=== PATIENT | female | born 1950 | race Caucasian/White ===

== ENCOUNTER 2018-06-25 10:44 | Emergency (ER) | payer MEDICARE, BC ==
[2018-06-25] MEDS ORDERED: Cyclobenzaprine 10 MG Tab PO ONE (11:24)
[2018-06-25] MEDS ORDERED: Ketorolac 30 MG/ML SDV IM ONE (11:24)
--- NOTE | 2018-06-25 11:25 | EDM.PDOC ---
ED HPI GENERAL MEDICAL PROBLEM - General Chief Complaint: Neck Problem Stated Complaint: Neck Pain Time Seen by Provider: 06/25/18 10:45 Source of Information: Reports: Patient History Limitations: Reports: No Limitations - History of Present Illness INITIAL COMMENTS - FREE TEXT/NARRATIVE: History of present illness: []Patient has a history of pancreatic cancer and 4 days ago sat in oncology in a reclining chair for chemotherapy. She drove home that day and when she turned her neck she noticed pain on the right lateral neck. She's had muscle stiffness and continuing pain with head movement since. Review of systems: As per history of present illness and below otherwise all systems reviewed and negative. Past medical history: As per history of present illness and as reviewed below otherwise noncontributory. Surgical history: As per history of present illness and as reviewed below otherwise noncontributory. Social history: No reported history of drug or alcohol abuse. Family history: As per history of present illness and as reviewed below otherwise noncontributory. Physical exam: General: Well developed, well nourished in NAD HEENT: Atraumatic, normocephalic, pupils reactive, negative for conjunctival pallor or scleral icterus, mucous membranes moist, throat clear, neck supple, nontender, trachea midline. Lungs: Clear to auscultation, breath sounds equal bilaterally, chest nontender. Heart: S1S2, regular, negative for clicks, rubs, or JVD. Abdomen: NABS, Soft, nondistended, nontender. Negative for masses or hepatosplenomegaly. Negative for costovertebral tenderness. Pelvis: Stable nontender. Genitourinary: Deferred. Rectal: Deferred. Extremities: Atraumatic, negative for cords or calf pain. Neurovascular unremarkable. Neuro: Awake, alert, oriented. Cranial nerves II through XII unremarkable. Cerebellum unremarkable. Motor and sensory unremarkable throughout. Exam nonfocal. Skin:warm and dry Diagnostics: None Therapeutics: Toradol, Flexeril ED Course: Stable Impression: Musculoskeletal spasm Prescriptions: Diclofenac, take your oxycodone and Flexeril at home Plan: Take meds as directed, follow up with your primary care physician, return to ER if symptoms worsen or change. 2 neck Definitive disposition and diagnosis as appropriate pending reevaluation and review of above. Neck Pain Score (Numeric/FACES): 6 - Related Data Allergies Allergy/AdvReac Type Severity Reaction Status Date / Time codeine Allergy Headache Verified 06/25/18 11:05 Home Meds: Home Meds Aspirin [Halfprin] 81 mg PO DAILY 06/25/18 [History] Diclofenac Sodium [Voltaren] 75 mg PO BIDMEALS PRN #20 tab.cr 06/25/18 [Rx] Gabapentin [Neurontin] 1,500 mg PO DAILY 06/25/18 [History] Levothyroxine mcg PO DAILY 06/25/18 [History] Sertraline [Zoloft] mg PO DAILY 06/25/18 [History] metFORMIN [Glucophage XR] 1,000 mg PO BID 06/25/18 [History] Past Medical History Endocrine/Metabolic History: Reports: Diabetes, Type II - Infectious Disease History Infectious Disease History: Reports: Chicken Pox, Measles, Mumps - Past Surgical History HEENT Surgical History: Reports: Adenoidectomy, Tonsillectomy, Other (See Below) Other HEENT Surgeries/Procedures: left ear surgeries x5 Other Cardiovascular Surgeries/Procedures: States had bypass surgery 1 year ago. GI Surgical History: Reports: Cholecystectomy Female Surgical History: Reports: Hysterectomy Social & Family History - Tobacco Use Smoking Status *Q: Former Smoker Used Tobacco, but Quit: Yes Month/Year Tobacco Last Used: 20 - Caffeine Use Caffeine Use: Reports: Soda - Recreational Drug Use Recreational Drug Use: No ED ROS GENERAL - Review of Systems Review Of Systems: ROS reveals no pertinent complaints other than HPI. ED EXAM, UPPER BACK/NECK PAIN - Physical Exam Exam: See Below (See history of present illness) Course - Vital Signs Last Recorded V/S: Last Vital Signs Temp 97.2 F 06/25/18 11:09 Pulse 116 H 06/25/18 11:09 Resp 16 06/25/18 11:09 BP 146/82 H 06/25/18 11:09 Pulse Ox 95 06/25/18 11:09 - Orders/Labs/Meds Meds: Medications Discontinued Medications Generic Name Dose Route Start Last Admin Trade Name Freq PRN Reason Stop Dose Admin Cyclobenzaprine HCl 10 mg 06/25/18 11:24 06/25/18 11:33 Flexeril PO 06/25/18 11:25 10 mg ONETIME ONE Administration Ketorolac Tromethamine 30 mg 06/25/18 11:24 06/25/18 11:33 Toradol IM 06/25/18 11:25 30 mg ONETIME ONE Administration Departure - Departure Time of Disposition: 12:25 Disposition: Home, Self-Care 01 Condition: Good Clinical Impression: Muscle spasm - Discharge Information *PRESCRIPTION DRUG MONITORING PROGRAM REVIEWED*: No *COPY OF PRESCRIPTION DRUG MONITORING REPORT IN PATIENT WENDY: No Prescriptions: Diclofenac Sodium [Voltaren] 75 mg PO BIDMEALS PRN #20 tab.cr PRN Reason: Pain Referrals: PCP,None [Primary Care Provider] - Forms: ED Department Discharge Additional Instructions: The following information is given to patients seen in the emergency department who are being discharged to home. This information is to outline your options for follow-up care. We provide all patients seen in our emergency department with a follow-up referral. The need for follow-up, as well as the timing and circumstances, are variable depending upon the specifics of your emergency department visit. If you don't have a primary care physician on staff, we will provide you with a referral. We always advise you to contact your personal physician following an emergency department visit to inform them of the circumstance of the visit and for follow-up with them and/or the need for any referrals to a consulting specialist. The emergency department will also refer you to a specialist when appropriate. This referral assures that you have the opportunity for follow-up care with a specialist. All of these measure are taken in an effort to provide you with optimal care, which includes your follow-up. Under all circumstances we always encourage you to contact your private physician who remains a resource for coordinating your care. When calling for follow-up care, please make the office aware that this follow-up is from your recent emergency room visit. If for any reason you are refused follow-up, please contact the [facility] Emergency Department at and asked to speak to the emergency department charge nurse. [facility] [address] [place] [id number]
== END 2018-06-25 12:33 | disposition home or self-care (01) ==
LOC: MW.ED 10:44
DX: M62.838 Other muscle spasm (principal); E11.9 Type 2 diabetes mellitus without complications; Z87.891 Personal history of nicotine dependence; Z88.5 Allergy status to narcotic agent; Z79.82 Long term (current) use of aspirin; Z79.899 Other long term (current) drug therapy; Z79.84 Long term (current) use of oral hypoglycemic drugs
CPT/HCPCS: 96372; 99283; A9270; J1885

== ENCOUNTER 2019-05-09 10:22 | Emergency (ER) | payer MEDICARE ==
[2019-05-09] MEDS ORDERED: Sodium Chloride 0.9% 10 ML Syringe FLUSH PRN (10:39)
[2019-05-09] MEDS ORDERED: Sodium Chloride 0.9% 2.5 ML Syringe FLUSH PRN (10:39)
--- NOTE | 2019-05-09 11:56 | CR ---
Chest: 2 views of the chest were obtained. Comparison: Prior chest CT study of 03/26/19. Blunting of the lateral left costophrenic angle is seen most likely representing minimal pleural effusion or pleural thickening. Left basilar chest tube appears to be present. Right-sided infusion port is seen. Surgical clips are seen within the left axillary region. Left upper and right lung are clear. Heart is enlarged. Atherosclerotic change and tortuosity is seen of the thoracic aorta is. Impression: 1. Blunting of the lateral left costophrenic angle believed to represent small pleural effusion or pleural thickening. Left basilar chest tube appears to be present. 2. Cardiomegaly. Other findings as noted above. Diagnostic code #3 This report was dictated in [place] Standard Time
[2019-05-09 12:14] LABS: LIPASE 86 U/L (73-393)
[2019-05-09] MEDS ORDERED: Iopamidol 755 MG/ML 500 ML Multipack Bottle IVPUSH STA (13:46)
--- NOTE | 2019-05-09 14:26 | CT ---
CT chest Technique: Multiple axial sections were obtained from above the lung apices inferiorly through the lung bases. Intravenous contrast was utilized. Study has been performed as a pulmonary angiogram protocol. Findings: Pulmonary arteries are well opacified. No filling defects are seen to indicate pulmonary embolism. Extensive coronary artery calcification is seen. Diffuse body wall edema is identified. Anterior abdominal wall hernia containing a loop of colon is seen to the left of midline. Bilateral pleural effusions are noted. Left chest tube is seen. Lungs show slight atelectasis on the left side. Lungs otherwise are clear. Atherosclerotic calcification is noted within the aorta without aneurysm. Bone window settings were reviewed which show no acute osseous finding. Impression: 1. No findings of pulmonary embolism. 2. Small bilateral pleural effusions. Atelectasis within the left lung. 3. Left basilar chest tube. 4. Anterior abdominal wall hernia to the left of midline containing a loop of nondilated colon. 5. Other findings as noted above which are nonacute. Diagnostic code #3 This report was dictated in [place] Standard Time
--- NOTE | 2019-05-09 14:48 | EDM.PDOC ---
ED [facility] GENERAL MEDICAL PROBLEM - General Chief Complaint: Respiratory Problem Stated Complaint: UNKNOWN Time Seen by Provider: 05/09/19 12:30 Source of Information: Reports: Patient History Limitations: Reports: No Limitations - History of Present Illness INITIAL COMMENTS - FREE TEXT/NARRATIVE: Is a 69-year-old female with a past medical history of pancreatic cancer heart failure presenting with a chief complaint of dyspnea. Patient is currently on chemotherapy and last treatment was earlier this month. Patient states she has been feeling subjectively dyspneic which is progressively worsened over the past weeks. Dyspnea is worse with certain positions. Patient has a longstanding left-sided pleural effusion with a drain in place for the past 7 months. Patient has noticed more frequent drainage over the past week. Patient has not had any fevers, chills, chest pain. The fluid draining from the catheter is still yellowish in color and not cloudy. Pmhx: Pancreatic cancer, heart failure Pshx: None Family Hx: noncontributory Smoking history? no Etoh use? none Drug use? none In addition to that documented in the HPI above, the additional ROS was obtained : Constitutional: Denies fevers or chills Eyes: Denies vision changes ENMT: Denies sore throat CV: Denies chest pain Resp: Per HPI GI: Denies vomiting or diarrhea : Denies painful urination MSK: Denies recent trauma Skin: Denies new rashes Neuro: Denies new numbness or tingling or weakness Endocrine: Denies unexpected weight loss Heme: Denies bleeding disorders I have reviewed the triage vital signs Const: Well nourished, well developed, appears stated age Eyes: PERRL, no conjunctival injection HENT: NCAT, Neck supple without meningismus CV: RRR, Warm, well-perfused extremities RESP: Chest wall examined demonstrates catheter in place with no surrounding serous cellulitis or erythema. CTAB, Unlabored respiratory effort GI: soft, non-tender, non-distended, no masses MSK: No gross deformities appreciated Skin: Warm, dry. No rashes Neuro: Alert, delivery merchandiser II-XII grossly intact. Sensation and motor function of extremities grossly intact. Psych: Appropriate mood and affect Assessment and plan: Patient is a 69-year-old female with a past medical history of pancreatic cancer and heart failure. Patient's labs were reviewed from clinic and in the emergency room without any acute changes. Patient had a chest CT done to rule out any underlying metastasis to the lung as well as rule out pulmonary embolism. No acute findings on chest CT. Patient is not requiring supplemental oxygen and is not dyspneic on exam. Patient will be discharged with oncology follow-up. - Related Data Allergies Allergy/AdvReac Type Severity Reaction Status Date / Time codeine Allergy Headache Verified 05/09/19 10:38 Home Meds: Home Meds Cetirizine [ZyrTEC] 10 mg PO DAILY 09/22/18 [History] Gabapentin [Neurontin] 600 mg PO BID 09/22/18 [History] Levothyroxine [Synthroid] 100 mcg PO ACBREAKFAST 09/22/18 [History] atorvaSTATin Calcium [Atorvastatin Calcium] 80 mg PO BEDTIME 09/22/18 [History] metFORMIN [Glucophage] 1,000 mg PO BIDMEALS 09/22/18 [History] Cephalexin [Keflex] 500 mg PO TID 05/09/19 [History] Furosemide 80 mg PO DAILY 05/09/19 [History] Lisinopril [Zestril] 5 mg PO DAILY 05/09/19 [History] Metoprolol Succinate 25 mg PO DAILY 05/09/19 [History] Ondansetron [Zofran] 8 mg PO Q8H PRN 05/09/19 [History] Past Medical History Cardiovascular History: Reports: Other (See Below) Other Cardiovascular History: Leaky Valve Respiratory History: Reports: Other (See Below) Other Respiratory History: Pleural Effusion- Left Endocrine/Metabolic History: Reports: Diabetes, Type II Oncologic (Cancer) History: Reports: Pancreatic - Infectious Disease History Infectious Disease History: Reports: Chicken Pox, Measles, Mumps - Past Surgical History HEENT Surgical History: Reports: Adenoidectomy, Tonsillectomy, Other (See Below) Other HEENT Surgeries/Procedures: left ear surgeries x5 Other Cardiovascular Surgeries/Procedures: States had abdominal bypass surgery 2 year ago. Angioplasty Respiratory Surgical History: Reports: Other (See Below) Other Respiratory Surgeries/Procedures: Pleural Drain in Left chest GI Surgical History: Reports: Cholecystectomy Female Surgical History: Reports: Hysterectomy Oncologic Surgical History: Reports: None Social & Family History - Family History Family Medical History: Noncontributory HEENT: Reports: Other (See Below) - Tobacco Use Smoking Status *Q: Never Smoker - Caffeine Use Caffeine Use: Reports: Coffee - Recreational Drug Use Recreational Drug Use: No ED ROS GENERAL - Review of Systems Review Of Systems: See Below ED EXAM, GENERAL - Physical Exam Exam: See Below Course - Vital Signs Last Recorded V/S: Last Vital Signs Temp 36.6 C 05/09/19 10:34 Pulse 80 05/09/19 13:10 Resp 18 05/09/19 13:10 BP 134/69 05/09/19 13:10 Pulse Ox 98 05/09/19 13:10 - Orders/Labs/Meds Orders: Active Orders 24 hr Category Date Time Status EKG Documentation Completion [RC] STAT Care 05/09/19 10:39 Active CBC WITH AUTO DIFF [HEME] Stat Lab 05/09/19 12:39 Ordered COMPREHENSIVE METABOLIC PN,CMP [CHEM] Stat Lab 05/09/19 12:40 Ordered UA RFX KEVIN AND CULT IF INDIC [URIN] Stat Lab 05/09/19 10:39 Ordered Sodium Chloride 0.9% [Saline Flush] Med 05/09/19 10:39 Active 10 ml FLUSH ASDIRECTED PRN Sodium Chloride 0.9% [Saline Flush] Med 05/09/19 10:39 Active 2.5 ml FLUSH ASDIRECTED PRN Saline Lock Insert [OM.PC] Stat Oth 05/09/19 10:39 Ordered Medication Orders Sodium Chloride (Saline Flush) 10 ml FLUSH ASDIRECTED PRN PRN Reason: Keep Vein Open Sodium Chloride (Saline Flush) 2.5 ml FLUSH ASDIRECTED PRN PRN Reason: Keep Vein Open Labs: Laboratory Tests 05/09/19 05/09/19 Range/Units 11:28 11:28 D-Dimer, Quantitative 3.83 H (0.0-0.50) mg/L FEU Troponin I < 0.050 (0.000-0.056) ng/mL Lipase 86 (73-393) U/L Meds: Medications Generic Name Dose Route Start Last Admin Trade Name Freq PRN Reason Stop Dose Admin Sodium Chloride 10 ml 05/09/19 10:39 Saline Flush FLUSH ASDIRECTED PRN Keep Vein Open Sodium Chloride 2.5 ml 05/09/19 10:39 Saline Flush FLUSH ASDIRECTED PRN Keep Vein Open Discontinued Medications Generic Name Dose Route Start Last Admin Trade Name Freq PRN Reason Stop Dose Admin Iopamidol 50 ml 05/09/19 13:46 05/09/19 13:46 Isovue Multipack-370 (76%) IVPUSH 05/09/19 13:47 50 ml ONETIME STA Administration Departure - Departure Time of Disposition: 14:53 Disposition: Home, Self-Care 01 Clinical Impression: Shortness of breath - Discharge Information Referrals: Amber Castillo, GROUP WORK PROGRAM DIRECTOR [Primary Care Provider] - Forms: ED Department Discharge Sepsis Event Note - Evaluation Sepsis Screening Result: No Definite Risk - Focused Exam Vital Signs: Vital Signs Temp Pulse Resp BP Pulse Ox 05/09/19 13:10 80 18 134/69 98 05/09/19 10:34 36.6 C 86 24 H 142/67 H 94 L Date Exam was Performed: 05/09/19 Time Exam was Performed: 14:50 - My Orders Last 24 Hours: My Active Orders 05/09/19 12:39 CBC WITH AUTO DIFF [HEME] Stat 05/09/19 12:40 COMPREHENSIVE METABOLIC PN,CMP [CHEM] Stat - Assessment/Plan Last 24 Hours: My Active Orders 05/09/19 12:39 CBC WITH AUTO DIFF [HEME] Stat 05/09/19 12:40 COMPREHENSIVE METABOLIC PN,CMP [CHEM] Stat
== END 2019-05-09 15:30 | disposition home or self-care (01) ==
LOC: MW.ED 10:22
DX: R06.02 Shortness of breath (principal); E11.9 Type 2 diabetes mellitus without complications; Z88.5 Allergy status to narcotic agent; Z79.899 Other long term (current) drug therapy; Z79.84 Long term (current) use of oral hypoglycemic drugs
CPT/HCPCS: 36415; 71046; 71275; 83690; 84484; 85379; 88104; 93005; 99285; Q9967; 99283